=== PATIENT | female | born 1955 | race Caucasian/White ===

== ENCOUNTER 2017-09-01 07:54 | Emergency (ER) | payer OTHER ==
[~2017-09-01] VITALS: Ht 170.2 cm; Wt 59.0 kg
[~2017-09-01 07:54] MED LIST: AMLODIPINE BESYL5 MG PO; BUDEPRION XL300 MG; BUDEPRION XL300 MG PO; DARVOCET-N 1001 EAC1 PO; DOESN'T KNOW NAMES; EVISTA; KEFLEX500 MG PO; METOCLOPRAMIDE10 MG; METOCLOPRAMIDE10 MG PO; NORCO 5-325 TA1 EACH PO; NORFLEX100 MG PO; PROTONIX40 M2; TOPROL XL50 MG PO; VYTORIN; ZOCOR40 MG PO
[2017-09-01] MEDS ORDERED: ALENDRONATE SOD70 MG PO (08:12)
[2017-09-01] MEDS ORDERED: ASPIR 8181 MG PO (08:12)
[2017-09-01] MEDS ORDERED: LIPITOR 20 MG T20 M1 PO (08:12)
[2017-09-01 10:00] VITALS: BP 109/58
== END 2017-09-01 10:03 | disposition home or self-care (01) ==
LOC: M.ERS 07:54
DX: S93.492A Sprain of other ligament of left ankle, initial encounter (principal); S93.692A Other sprain of left foot, initial encounter; I10 Essential (primary) hypertension; E78.00 Pure hypercholesterolemia, unspecified; K21.9 Gastro-esophageal reflux disease without esophagitis; F32.9 Major depressive disorder, single episode, unspecified; J44.9 Chronic obstructive pulmonary disease, unspecified; L40.9 Psoriasis, unspecified; M81.0 Age-related osteoporosis without current pathological fracture; F17.200 Nicotine dependence, unspecified, uncomplicated; Z88.5 Allergy status to narcotic agent; W01.0XXA Fall on same level from slipping, tripping and stumbling without subsequent striking against object, initial encounter; Y93.89 Activity, other specified; Y92.89 Other specified places as the place of occurrence of the external cause; Y99.8 Other external cause status

== ENCOUNTER 2020-05-07 11:18 | Emergency (ER) | payer OTHER ==
[~2020-05-07] VITALS: Ht 170.2 cm; Wt 63.5 kg
[~2020-05-07 11:18] MED LIST changes: +ALENDRONATE SOD70 MG PO; +ASPIR 8181 MG PO; +LIPITOR 20 MG T20 M1 PO
[2020-05-07] MEDS ORDERED: NORCO 5-325 TA1 EAC2 PO (12:50)
[2020-05-07 13:29] VITALS: BP 117/69
== END 2020-05-07 13:30 | disposition home or self-care (01) ==
LOC: M.ERS 11:18
DX: S52.532A Colles' fracture of left radius, initial encounter for closed fracture (principal); I10 Essential (primary) hypertension; E78.00 Pure hypercholesterolemia, unspecified; K21.9 Gastro-esophageal reflux disease without esophagitis; L40.9 Psoriasis, unspecified; Z88.5 Allergy status to narcotic agent; W10.8XXA Fall (on) (from) other stairs and steps, initial encounter; Y93.89 Activity, other specified; Y92.89 Other specified places as the place of occurrence of the external cause; Y99.8 Other external cause status